=== PATIENT | male | born 1950 | race Caucasian/White ===

== ENCOUNTER 2018-09-19 03:25 | Inpatient (IN) | payer MEDICARE, OTHER ==
[2018-09-19] MEDS ORDERED: NORepinephrine 8MG/250 ML (PMX 250 ML (03:42)
[2018-09-19] MEDS: VECURONIUM 100 MG in DEXTROSE 5% 100 ML IV (03:54)
[2018-09-19] MEDS: OCULAR LUBRICANT 3.5 GM OPH OINT BOTH EYES (04:00)
[2018-09-19] MEDS: ASPIRIN 300 MG SUPP PR (04:00)
[2018-09-19] MEDS ORDERED: ARTIFICIAL TEARS 15 ML OPH BOTH EYES (04:00)
[2018-09-19] MEDS ORDERED: PROPOFOL 100 ML (04:06)
[2018-09-19 04:08] LABS: ADD MAN DIFF? NO
[2018-09-19] MEDS: PROPOFOL 100 ML IV ×4 (04:10→21:37)
[2018-09-19 04:11] LABS: WHITE BLOOD COUNT 14.5 10^3/ul (4.8-10.8)
[2018-09-19 04:11] LABS: ABNORMAL IP MESSAGE 1; BASOPHIL # 0.2 10^3/ul (0.0-0.1); EOSINOPHILS # 0.2 10^3/ul (0.0-0.5); EOSINOPHILS % 1.4 % (0.0-7.0); HEMOGLOBIN 14.2 g/dl (14.0-18.0); LYMPHOCYTES # 5.3 10^3/ul (0.8-2.9); LYMPHOCYTES % 36.2 % (15.0-51.0); MEAN CORPUSCULAR HEMOGLOBIN 30.7 pg (29.0-33.0); MEAN CORPUSCULAR HGB CONC 31.6 g/dl (32.0-37.0); MEAN CORPUSCULAR VOLUME 97.4 fl (82.0-101.0); MEAN PLATELET VOLUME 12.5 fl (7.4-10.4); MONOCYTE # 0.8 10^3/ul (0.3-0.9); MONOCYTES % 5.5 % (0.0-11.0); NEUTROPHILS % 55.4 % (39.0-77.0); PLATELET COUNT 239 10^3/UL (140-415); POSITIVE DIFF @See below; RED BLOOD COUNT 4.62 10^6/ul (4.70-6.10); RED CELL DISTRIBUTION WIDTH 13.2 % (11.5-14.5)
[2018-09-19 04:24] LABS: INR 0.95; PROTIME 12.8 Sec (11.9-14.9)
[2018-09-19] MEDS: NORepinephrine 8MG/250 ML (PMX 250 ML IV ×2 (04:30→12:18)
[2018-09-19] MEDS: FENTAnyl 50 MCG/ML VIAL IV (04:38)
[2018-09-19] MEDS: FENTAnyl (DRIP) 1000 mcg/100mL 100 ML IV (04:42)
[2018-09-19 04:49] LABS: ETHANOL < 10.0 mg/dl (0-0)
[2018-09-19 04:59] LABS: ALANINE AMINOTRANSFERASE 38 IU/L (13-69); ALBUMIN 4.5 g/dl (3.3-4.9); ALBUMIN/GLOBULIN RATIO 1.32; ALKALINE PHOSPHATASE 150 IU/L (42-121); ANION GAP 15 (5-13); ASPARTATE AMINO TRANSFERASE 46 IU/L (15-46); BILIRUBIN,INDIRECT 0.3 mg/dl (0-1.1); BILIRUBIN,TOTAL 0.3 mg/dl (0.2-1.3); BLOOD UREA NITROGEN 25 mg/dl (7-20); CALCIUM 9.7 mg/dl (8.4-10.2); CARBON DIOXIDE 20 mmol/L (21-31); CHLORIDE 106 mmol/L (97-110); CREATININE 1.47 mg/dl (0.61-1.24); Estimated GFR 48 mL/min (>60); MAGNESIUM 1.9 mg/dl (1.7-2.5); PHOSPHORUS 5.3 mg/dl (2.5-4.9); POTASSIUM 5.1 mmol/L (3.5-5.1); SODIUM 141 mmol/L (135-144); TOTAL PROTEIN 7.9 g/dl (6.1-8.1)
[2018-09-19 05:07] LABS: AADO2 Arterial 544.3 mmHg (7.0-24.0); Allen Test ACCEPTAB; Arterial Base Excess -4.3 mmol/L (-3.0-3); Arterial Blood Gas Oxygen Sat 97.9 mmHG (95.0-98.0); Arterial COHb 0.3 % (0.0-3.0); Arterial Fraction of Oxyhgb 97.4 % (93.0-99.0); Arterial HCO3 20.6 mmol/L (22.0-26.0); Arterial MetHb 0.2 % (0.0-1.5); Arterial pCO2 37.5 mmhg (35-45); MODE VENT - AC; Site Right Radial
[2018-09-19 05:10] LABS: TROPONIN-I 0.069 ng/ml (0.000-0.120)
[2018-09-19 05:13] LABS: GLUCOSE 435 mg/dl (70-220)
[2018-09-19] MEDS ORDERED: ALBUTEROL HFA 8 GM INHALER INH (05:30)
[2018-09-19] MEDS ORDERED: ACETAMINOPHEN 650 MG SUPP PR (05:30)
[2018-09-19] MEDS: ACCU-CHEK XX ×36 (05:30→23:30)
[2018-09-19] MEDS ORDERED: PROPOFOL 100 ML IV (05:30)
[2018-09-19] MEDS ORDERED: DEXTROSE 50% 50 ML SYRINGE IV ×3 (05:30→07:30)
[2018-09-19] MEDS ORDERED: VANCOMYCIN IV PER PHARMACY XX (05:30)
[2018-09-19] MEDS ORDERED: IPRATROPIUM (HFA) 12.9 GM INHALER INH (05:30)
[2018-09-19] MEDS: CEFEPIME 2GM/50 ML (PMX) 50 ML IVPB (05:53)
[2018-09-19] MEDS ORDERED: PANTOPRAZOLE 40 MG INJ IV (06:00)
[2018-09-19] MEDS: IODIXANOL LOCM 100 ML BTL (06:43)
[2018-09-19] MEDS: SOD CHLORIDE 0.9% 100 ML (06:43)
[2018-09-19] MEDS: PIPER-TAZO 3.375 GM IV (PMX) 100 ML IVPB ×3 (07:23→21:34)
[2018-09-19] MEDS: SODIUM CHLORIDE 0.9% 1L BAG IV* (07:27)
[2018-09-19] MEDS: INSULIN HUMAN REGULAR 100 UNIT in SOD CHLORIDE 0.9% 99 ML IV (07:47)
[2018-09-19 07:55] LABS: SALICYLATE 2.5 mg/dl (5.0-30.0)
[2018-09-19 08:00] LABS: ACETAMINOPHEN < 10.0 ug/ml (10.0-30.0)
[2018-09-19 08:02] LABS: LACTIC ACID 2.1 mmol/L (0.5-2.0)
[2018-09-19] MEDS: VANCOMYCIN HCL 1.5 GM in SOD CHLORIDE 0.9% 250 ML IVPB ×2 (08:27→09:32)
[2018-09-19] MEDS: ASPIRIN (EC) 325 MG TAB PO (09:00)
[2018-09-19] MEDS: HEPARIN 5,000 UNIT/1 ML VIAL SC (09:47)
[2018-09-19] MEDS: VANCOMYCIN 1 GM (PMX) 250 ML IVPB (09:51)
[2018-09-19] MEDS: DEXTROSE 5%-0.45% NACL 1,000 ML IV (10:00)
[2018-09-19] MEDS: SODIUM CHLORIDE 0.9% 500 ML BAG IV* (10:00)
[2018-09-19 10:16] LABS: CREATINE KINASE 413 IU/L (23-200)
[2018-09-19 10:18] LABS: LACTIC ACID 2.9 mmol/L (0.5-2.0)
[2018-09-19 10:27] LABS: CK INDEX 6.7
[2018-09-19] MEDS: FAMOTIDINE 20 MG INJ IV (11:57)
[2018-09-19] MEDS: CARBOXYMETHYLCELLULOSE 0.5% 0.4 ML OPH BOTH EYES (12:30)
[2018-09-19 12:59] LABS: CREATINE KINASE 454 IU/L (23-200)
[2018-09-19 13:11] LABS: CK INDEX 7.4
[2018-09-19] MEDS ORDERED: HEPARIN 1000 UNITS/ML 10 ML INJ IV (13:30)
[2018-09-19] MEDS: SOD CHLORIDE 0.9% 1,000 ML IV (13:30)
[2018-09-19] MEDS: HEPARIN 1000 UNITS/ML 10 ML INJ IV ×2 (13:49→21:59)
[2018-09-19] MEDS: HEPARIN 25000 UNITS/250 ML 250 ML IV (13:52)
[2018-09-19 14:11] LABS: ADD MAN DIFF? NO
[2018-09-19 14:12] LABS: WHITE BLOOD COUNT 18.1 10^3/ul (4.8-10.8)
[2018-09-19 14:12] LABS: BASOPHILS % 0.2 % (0.0-2.0); HEMATOCRIT 32.8 % (42.0-52.0); HEMOGLOBIN 10.9 g/dl (14.0-18.0); LYMPHOCYTES # 1.2 10^3/ul (0.8-2.9); LYMPHOCYTES % 6.4 % (15.0-51.0); MEAN CORPUSCULAR HEMOGLOBIN 30.8 pg (29.0-33.0); MEAN CORPUSCULAR HGB CONC 33.2 g/dl (32.0-37.0); MEAN CORPUSCULAR VOLUME 92.7 fl (82.0-101.0); MEAN PLATELET VOLUME 11.5 fl (7.4-10.4); MONOCYTES % 5.7 % (0.0-11.0); NEUTROPHIL # 15.8 10^3/ul (1.6-7.5); NEUTROPHILS % 87.2 % (39.0-77.0); PLATELET COUNT 171 10^3/UL (140-415); RED BLOOD COUNT 3.54 10^6/ul (4.70-6.10); RED CELL DISTRIBUTION WIDTH 13.1 % (11.5-14.5)
[2018-09-19 14:32] LABS: PROTIME 15.3 Sec (11.9-14.9); PT RATIO 1.2
[2018-09-19 14:33] LABS: PARTIAL THROMBOPLASTIN TIME 30.8 Sec (23.0-35.0)
[2018-09-19] MEDS ORDERED: IODIXANOL LOCM 100 ML BTL (17:26)
[2018-09-19] MEDS ORDERED: LIDOCAINE 1% (MDV) 20 ML INJ (17:26)
[2018-09-19 18:03] LABS: AADO2 Arterial 423.9 mmHg (7.0-24.0); Arterial Base Excess -3.7 mmol/L (-3.0-3); Arterial Blood Gas Oxygen Sat 97.5 mmHG (95.0-98.0); Arterial COHb 0.2 % (0.0-3.0); Arterial Fraction of Oxyhgb 97.2 % (93.0-99.0); Arterial HCO3 20.4 mmol/L (22.0-26.0); Arterial MetHb 0.1 % (0.0-1.5); Arterial pCO2 34.1 mmhg (35-45); MODE VENT - AC; Site A-Line
[2018-09-19 20:48] LABS: PARTIAL THROMBOPLASTIN TIME 37.8 Sec (23.0-35.0)
[2018-09-19] MEDS ORDERED: DEXTROSE 50% 50 ML SYRINGE (21:00)
[2018-09-19] MEDS ORDERED: CA CHLORIDE 10% 10 ML SYRINGE (21:00)
[2018-09-19] MEDS ORDERED: SUCCINYLCHOLINE CHLORIDE 100 MG/5 ML SYG IV (21:00)
[2018-09-19] MEDS ORDERED: EPINEPHrine 10 MCG/1ml (10 ML SYG) IV (21:00)
[2018-09-19] MEDS: ATORVASTATIN 20 MG TAB PO (21:34)
[2018-09-20] MEDS: PROPOFOL 100 ML IV (00:03)
[2018-09-20] MEDS: NORepinephrine 8MG/250 ML (PMX 250 ML IV (00:03)
[2018-09-20] MEDS: PIPER-TAZO 3.375 GM IV (PMX) 100 ML IVPB ×5 (00:17→23:56)
[2018-09-20] MEDS: ACCU-CHEK XX ×22 (00:17→16:23)
[2018-09-20] MEDS: SOD CHLORIDE 0.9% 1,000 ML IV ×2 (00:17→09:09)
[2018-09-20] MEDS: DEXTROSE 50% 50 ML SYRINGE IV (04:45)
[2018-09-20 04:56] LABS: ADD MAN DIFF? NO
[2018-09-20] MEDS: FAMOTIDINE 20 MG INJ IV (05:01)
[2018-09-20 05:09] LABS: AADO2 Arterial 173.9 mmHg (7.0-24.0); Arterial Base Excess -2.6 mmol/L (-3.0-3); Arterial Blood Gas Oxygen Sat 98.6 mmHG (95.0-98.0); Arterial COHb 0.3 % (0.0-3.0); Arterial Fraction of Oxyhgb 98.1 % (93.0-99.0); Arterial HCO3 20.9 mmol/L (22.0-26.0); Arterial MetHb 0.2 % (0.0-1.5); Arterial pCO2 31.8 mmhg (35-45); MODE VENT - AC; Site A-Line
[2018-09-20] MEDS: FENTAnyl (DRIP) 1000 mcg/100mL 100 ML IV (05:10)
[2018-09-20 05:11] LABS: BASOPHIL # 0.1 10^3/ul (0.0-0.1); BASOPHILS % 0.5 % (0.0-2.0); EOSINOPHILS % 0.1 % (0.0-7.0); HEMATOCRIT 29.2 % (42.0-52.0); LYMPHOCYTES # 2.4 10^3/ul (0.8-2.9); LYMPHOCYTES % 15.6 % (15.0-51.0); MEAN CORPUSCULAR HEMOGLOBIN 32.9 pg (29.0-33.0); MEAN CORPUSCULAR HGB CONC 34.2 g/dl (32.0-37.0); MEAN CORPUSCULAR VOLUME 96.1 fl (82.0-101.0); MEAN PLATELET VOLUME 11.6 fl (7.4-10.4); MONOCYTE # 1.1 10^3/ul (0.3-0.9); MONOCYTES % 7.2 % (0.0-11.0); NEUTROPHIL # 11.9 10^3/ul (1.6-7.5); NEUTROPHILS % 76.2 % (39.0-77.0); PLATELET COUNT 157 10^3/UL (140-415); RED BLOOD COUNT 3.04 10^6/ul (4.70-6.10); RED CELL DISTRIBUTION WIDTH 13.2 % (11.5-14.5)
[2018-09-20 05:11] LABS: WHITE BLOOD COUNT 15.6 10^3/ul (4.8-10.8)
[2018-09-20 05:28] LABS: HEMOGLOBIN A1C 8.6 % (0-5.9)
[2018-09-20 05:29] LABS: LACTIC ACID 1.2 mmol/L (0.5-2.0)
[2018-09-20 05:34] LABS: ANION GAP 5 (5-13); BLOOD UREA NITROGEN 29 mg/dl (7-20); CALCIUM 8.3 mg/dl (8.4-10.2); CARBON DIOXIDE 26 mmol/L (21-31); CHLORIDE 112 mmol/L (97-110); CREATININE 1.34 mg/dl (0.61-1.24); Estimated GFR 53 mL/min (>60); GLUCOSE 73 mg/dl (70-220); POTASSIUM 4.3 mmol/L (3.5-5.1); SODIUM 143 mmol/L (135-144)
[2018-09-20 05:51] LABS: PARTIAL THROMBOPLASTIN TIME 156.5 Sec (23.0-35.0)
[2018-09-20] MEDS: INSULIN HUMAN REGULAR 100 UNIT in SOD CHLORIDE 0.9% 99 ML IV (07:33)
[2018-09-20 07:52] LABS: PHOSPHORUS 3.6 mg/dl (2.5-4.9)
[2018-09-20 07:52] LABS: MAGNESIUM 1.6 mg/dl (1.7-2.5)
[2018-09-20 08:38] LABS: CHOL/HDL RATIO 2.5 RATIO; HDL CHOLESTEROL 40 mg/dl (30-78); LDL CHOLESTEROL,CALCULATED 54 mg/dl; TRIGLYCERIDES 44 mg/dl (0-149)
[2018-09-20 08:38] LABS: CHOLESTEROL 103 mg/dl (100-200)
[2018-09-20] MEDS: ASPIRIN (EC) 325 MG TAB PO (08:57)
[2018-09-20] MEDS: VANCOMYCIN 1 GM 250 ML IVPB (08:59)
[2018-09-20 13:14] LABS: AADO2 Arterial 152.6 mmHg (7.0-24.0); Arterial Base Excess -2.6 mmol/L (-3.0-3); Arterial Blood Gas Oxygen Sat 95.8 mmHG (95.0-98.0); Arterial COHb 0.3 % (0.0-3.0); Arterial Fraction of Oxyhgb 95.4 % (93.0-99.0); Arterial HCO3 22.3 mmol/L (22.0-26.0); Arterial MetHb 0.1 % (0.0-1.5); Blood Gas PS 10; MODE VENT - CPAP; Site A-Line
[2018-09-20 13:42] LABS: PARTIAL THROMBOPLASTIN TIME 59.8 Sec (23.0-35.0)
[2018-09-20] MEDS ORDERED: GLUCAGON 1 MG INJ IM (16:30)
[2018-09-20] MEDS ORDERED: GLUCOSE GEL 15 GRAM TUBE PO ×2 (16:30)
[2018-09-20] MEDS ORDERED: GLUCOSE GEL 15 GRAM TUBE BUCCAL (16:30)
[2018-09-20] MEDS ORDERED: DEXTROSE 50% 50 ML SYRINGE IV ×2 (16:30)
[2018-09-20] MEDS: FUROSEMIDE 20 MG INJ IV (16:38)
[2018-09-20] MEDS: INSULIN ASPART [NOVOLOG] 3 ML PEN SC ×2 (17:00→20:28)
[2018-09-20] MEDS: ATORVASTATIN 20 MG TAB PO (20:29)
[2018-09-20] MEDS: ONDANSETRON 4 MG INJ IV (21:31)
== END 2018-09-21 00:50 | disposition short-term general hospital (02) | DRG 280 ==
LOC: E/R 03:25 → ICU 05:34
PROC: 4A023N8 Measurement of Cardiac Sampling and Pressure, Bilateral, Percutaneous Approach (ICD-10-PCS; principal; 2018-09-19)
PROC: B211YZZ Fluoroscopy of Multiple Coronary Arteries using Other Contrast (ICD-10-PCS; 2018-09-19)
PROC: B215YZZ Fluoroscopy of Left Heart using Other Contrast (ICD-10-PCS; 2018-09-19)
PROC: 0BH17EZ Insertion of Endotracheal Airway into Trachea, Via Natural or Artificial Opening (ICD-10-PCS; 2018-09-19)
PROC: 5A1945Z Respiratory Ventilation, 24-96 Consecutive Hours (ICD-10-PCS; 2018-09-19)
PROC: 5A12012 Performance of Cardiac Output, Single, Manual (ICD-10-PCS; 2018-09-19)
PROC: 05HM33Z Insertion of Infusion Device into Right Internal Jugular Vein, Percutaneous Approach (ICD-10-PCS; 2018-09-19)
PROC: 4A133R1 Monitoring of Arterial Saturation, Peripheral, Percutaneous Approach (ICD-10-PCS; 2018-09-19)
DX: I21.4 Non-ST elevation (NSTEMI) myocardial infarction (principal); J69.0 Pneumonitis due to inhalation of food and vomit; R57.0 Cardiogenic shock; J96.91 Respiratory failure, unspecified with hypoxia; N17.9 Acute kidney failure, unspecified; I25.10 Atherosclerotic heart disease of native coronary artery without angina pectoris; E11.65 Type 2 diabetes mellitus with hyperglycemia; E11.51 Type 2 diabetes mellitus with diabetic peripheral angiopathy without gangrene; E78.00 Pure hypercholesterolemia, unspecified; I35.0 Nonrheumatic aortic (valve) stenosis; I11.0 Hypertensive heart disease with heart failure; I50.9 Heart failure, unspecified; Z86.73 Personal history of transient ischemic attack (TIA), and cerebral infarction without residual deficits; Z79.84 Long term (current) use of oral hypoglycemic drugs; Z79.82 Long term (current) use of aspirin
CPT/HCPCS: 31500; 36415; 36600; 70450; 71045; 71275; 75635; 80048; 80053; 80061; 80307; 82550; 82553; 82803; 82962; 83036; 83605; 83735; 84100; 84484; 85025; 85335; 85610; 85730; 86850; 86900; 86901; 87040-91; 92950; 93005; 93306; 93460; 94002; 94003; 94770; 99285-25